=== PATIENT | male | born 1955 | race Caucasian/White ===

== ENCOUNTER 2016-11-14 23:06 | Inpatient (IN) | payer OTHER ==
[~2016-11-14] VITALS: Ht 185.4 cm; Wt 90.4 kg
[2016-11-15 00:45] VITALS: BP 116/58; PULSE 68; RESP 18; TEMP 98.1; O2SAT 100
[2016-11-15] MEDS ORDERED: ACETAMINOPHEN 325 MG TAB PO PRN ×2 (02:15→12:00)
[2016-11-15] MEDS ORDERED: MAGNESIUM HYDROXIDE SUSP 30 ML CUP PO PRN ×2 (02:15→12:00)
[2016-11-15] MEDS ORDERED: ALUMINUM/MAGNESIUM/SIMETH 30 ML CUP PO PRN ×2 (02:15→12:00)
[2016-11-15] MEDS ORDERED: hydrOXYzine HCL 50 MG TAB PO PRN (02:15)
[2016-11-15 05:33] VITALS: BP 112/60; PULSE 82; RESP 18; TEMP 98.1; O2SAT 98
--- NOTE | 2016-11-15 12:35 | HHI.HP ---
Provisional Diagnosis Admission Date Nov 15, 2016 at 00:45 [place] I. Amphetamine abuse F 15.10, psychoactive substance induced mood disorder F 19.92 , malingering Z 76.5 Certification of Person's Competence To Provide Express and Informed Consent I have personally examined César Ellsworth , a person being served at [facility] on, Nov 15, 2016 12:02. Express and informed consent means consent voluntarily given in writing, by a competent person, after sufficient explanation and disclosure of the subject matter involved to enable the person to make a knowing and willful decision without any element of force, fraud, deceit, duress, or other form of constraint or coercion. This person is 18 years of age or older, is not now known to be incompetent to consent to treatment with a guardian advocate, and does not have a health care surrogate or proxy currently making medical treatment decisions. I have found this person to be one of the following: [x] Competent to provide express and informed consent, as defined above, for voluntary admission to this facility and is competent to provide express and informed consent for treatment. He/she has the consistent capacity to make well reasoned, willful, and knowing decisions concerning his or her medical or mental health treatment. The person fully and consistently understands the purpose of the admission for examination/placement and is fully capable of personally exercising all rights assured under [place] Incompetent to provide express and informed consent to voluntary admission, and this is incompetent to provide express and informed consent to treatment. The person must be transferred to involuntary status and a petition for a guardian advocate filed with the Circuit Court. [] Refusing to provide express and informed consent to voluntary admission but is competent to provide express and informed consent for treatment. The person must be discharged or transferred to involuntary status. Form shall be completed within 24 hours of a person's arrival at the receiving facility and filed in the clinical record of each person: 1. Admitted on a voluntary basis 2. Permitted to provide express and informed consent to his/her own treatment 3. Allowed to transfer from involuntary to voluntary status 4. Prior to permitting a person to consent to his or her own treatment after having been previously found incompetent to consent to treatment. History of Present Illness Capacity: Has Capacity HPI Patient is a 61-year-old white male is Zaid acted here from [facility] act signed by Dr. Stephanie Mathews dated 11/14/16 at 1:20 PM. Mar act review essentially stating the patient was depressed and homeless thoughts to hurt himself patient was requesting to be Mar acted and if he was was not Mar acted he would hurt himself. It appears he stated that many times there. Patient seen and screened blood alcohol level negative urine toxicology positive for amphetamines. It appears patient was homeless and somehow came from the [place] area initially with a car though it appears it broke down in the [facility], eventually wound up at the hospital. Patient was transferred to this facility under the Mar act. Patient seen in his room with medical student Nora. Patient somewhat disheveled. Initially calm but giving somewhat confusing convoluted story that was quite void of details and accuracy. Acknowledge being homeless for for 2 years. Then stated he has physicians in the community one that had prescribed him Wellbutrin. He stated having a supply of that in his car that is impounded somewhere around [place]. When asked about his amphetamine in his urine he says that he is prescribed by a family practice doctor in [place] for his attention problems. Review of our EMR shows this is his first visit with us. Patient make vague claims about prior psychiatric contact or hospitalizations though unable to give any details. He said he has no support group but he also gave a convoluted history of being born in [place] coming to various places in the [place] and that he has extended family in [place] and [place]. When asked what we could do to help him he said help make contact with " my girl friend in [place]." I rejected that stating that there are services in the community to help homeless contact people. once I mentioned that he may be looking for "3 hots and a cot " he became quite angry. When I mentioned that I would not give prescriptions for substances of abuse such as benzodiazepines opiates or psychostimulants he became more angry and said we should "just discharge me" "and I will show you" At this time and feel patient does not meet Mar act criteria. I feel this is significant degree of manipulation and malingering. Thus I'll lift the Mar act. Allow the patient to be discharged. There will be no Rx by me. We will refer him through to the homeless coalition, diane KaurJeyson Orantes act if he wishes further mental health follow-up. Also refer him to na Review of Systems Constitutional: DENIES: Diaphoretic episodes, Fatigue, Fever, Weight gain, Weight loss, Chills, Dizziness, Change in appetite, Night Sweats Endocrine: DENIES: Heat/cold intolerance, Polydipsia, Polyuria, Polyphagia Eyes: DENIES: Blurred vision, Diplopia, Eye inflammation, Eye pain, Vision loss , Photosensitivity, Double Vision Ears, nose, mouth, throat: DENIES: Tinnitus, Hearing loss, Vertigo, Nasal discharge, Oral lesions, Throat pain, Hoarseness, Ear Pain, Running Nose, Epistaxis, Sinus Pain, Toothache, Odynophagia Respiratory: DENIES: Apneas, Cough, Snoring, Wheezing, Hemoptysis, Sputum production, Shortness of breath Cardiovascular: DENIES: Chest pain, Palpitations, Syncope, Dyspnea on Exertion , PND, Lower Extremity Edema, Orthopnea, Claudication Gastrointestinal: DENIES: Abdominal pain, Black stools, Bloody stools, Constipation, Diarrhea, Nausea, Vomiting, Difficulty Swallowing, Anorexia Genitourinary: DENIES: Sexual dysfunction, Urinary frequency, Urinary incontinence, Urgency, Hematuria, Dysuria, Nocturia, Penile Discharge, Testicular Pain, Testicular Swelling Musculoskeletal: DENIES: Joint pain, Muscle aches, Stiffness, Joint Swelling, Back pain, Neck pain Integumentary: DENIES: Abnormal pigmentation, Nail changes, Pruritus, Rash Hematologic/lymphatic: DENIES: Bruising, Lymphadenopathy Immunologic/allergic: DENIES: Eczema, Urticaria Neurologic: DENIES: Abnormal gait, Headache, Localized weakness, Paresthesias, Seizures, Speech Problems, Tremor, Poor Balance Psychiatric: DENIES: Anxiety, Confusion, Mood changes, Depression, Hallucinations, Agitation, Suicidal Ideation, Homicidal Ideation, Delusions Past Psych History Psychological trauma history Denies Violence risk - others (6 mos) Patient labile and angry Violence risk - self (6 mos) Patient made statements concerning suicidality that I feel a manipulative of malingering Substance Abuse History Drugs/Alcohol past 12 months urine toxicology positive for amphetamines Past Family Social History Coded Allergies: No Known Allergies (Unverified , 11/15/16) Past Medical History Patient medically cleared [facility] Current Medications Medications (Trade) Dose Ordered Sig/Abner Route Start Time Stop Time Status Last Admin (Pneumovax-23 Inj) 25 mcg ONCE ONCE IM 11/16/16 10:00 11/16/16 10:01 (Flu (Quadrivalent) Vaccine Inj) 0.5 ml ONCE ONCE IM 11/16/16 10:00 11/16/16 10:01 (Atarax) 50 mg Q6H PRN PO 11/15/16 02:15 (Tylenol) 650 mg Q4H PRN PO 11/15/16 02:15 (Milk Of Magnesia Liq) 30 ml DAILY PRN PO 11/15/16 02:15 (Mag-Al Plus Susp Liq) 30 ml Q6H PRN PO 11/15/16 02:15 Family History unable to ascertain at this time Social History Patient homeless has abused amphetamines appears to be malingering Patient's Strengths (min. 2) Able access healthcare, is quite verbal Physical Exam Patient seen screened at [facility] medically cleared there vital signs blood pressure 112/60 pulse 82 respirations 18 Vital Signs Vital Signs Date Time Temp Pulse Resp B/P Pulse Ox O2 Delivery O2 Flow Rate FiO2 11/15/16 05:33 98.1 82 18 112/60 98 Lab Results Urine toxicology drawn at [facility] positive for amphetamines Mental Status Examination Alert oriented somewhat disheveled white male appears somewhat younger than stated age laying in a entitled irritable demanding manipulative attitude angry and labile Appearance Disheveled Speech: Unremarkable Orientation: x3 Memory: Unremarkable Thought Process: Logical, Circumstantial Thought Content: Unremarkable Hallucination Type: None Attention and Concentration: Other (fair) Suicidal Ideation: No (patient made vague suicidal statements though I feel they were manipulative and malingering) Previous Suicide Attempts: No Homicidal Ideation: No Previous Homicide Attempts: No Insight: Poor Judgement: Poor Affect: Oppositional, Other (slight increase range and intensity) Mood: Angry, Oppositional, Irritable Motor Activity: Normal gait (patient slight limp secondary to extensive walking ) Assessment & Plan Problem List: (1) Malingering ICD Code: Z76.5 (2) Amphetamine abuse ICD Code: F15.10 (3) Psychoactive substance-induced mood disorder ICD Code: F19.94 Assessment & Plan Estimated LOS: days at this time patient does not meet Mar criteria will lift Mar act I feel is a degree of malingering with this gentleman. Thus I will discharge patient to himself, no Rx by me, will refer him to the homeless coalition, referral Mr. Orantes act 50 wishes further mental health assessment. Also refer to narcotics anonymous Discharge Planning See above Request HC Surrog/Guard Advoc?: No Good Walden MD Nov 15, 2016 12:35
--- NOTE | 2016-11-15 12:42 | HHI.DS ---
Psychiatry Discharge Summary Inpatient Psychiatric care?: Yes Advance Directive: No Reason Not Provided: declined Mental Health AdvanceDirective: No Health Care Proxy: No Admission Admission Date Nov 15, 2016 at 00:45 Admission Diagnosis: (1) Malingering ICD Code: Z76.5 (2) Amphetamine abuse ICD Code: F15.10 (3) Psychoactive substance-induced mood disorder ICD Code: F19.94 Brief History Patient is a 61-year-old white male is Mar acted here from [facility] Mar act signed by Dr. Stephanie Mathews dated 11/14/16 at 1:20 PM. Mar act review essentially stating the patient was depressed and homeless thoughts to hurt himself patient was requesting to be Mar acted and if he was was not Mar acted he would hurt himself. It appears he stated that many times there. Patient seen and screened blood alcohol level negative urine toxicology positive for amphetamines. It appears patient was homeless and somehow came from the [place] area initially with a car though it appears it broke down in the [facility], eventually wound up at the hospital. Patient was transferred to this facility under the Mar act. Patient seen in his room with medical student Nora. Patient somewhat disheveled. Initially calm but giving somewhat confusing convoluted story that was quite void of details and accuracy. Acknowledge being homeless for for 2 years. Then stated he has physicians in the community one that had prescribed him Wellbutrin. He stated having a supply of that in his car that is impounded somewhere around [place]. When asked about his amphetamine in his urine he says that he is prescribed by a family practice doctor in [place] for his attention problems. Review of our EMR shows this is his first visit with us. Patient make vague claims about prior psychiatric contact or hospitalizations though unable to give any details. He said he has no support group but he also gave a convoluted history of being born in [place] coming to various places in the [place] and that he has extended family in [place] and [place]. When asked what we could do to help him he said help make contact with " my girl friend in [place]." I rejected that stating that there are services in the community to help homeless contact people. once I mentioned that he may be looking for "3 hots and a cot " he became quite angry. When I mentioned that I would not give prescriptions for substances of abuse such as benzodiazepines opiates or psychostimulants he became more angry and said we should "just discharge me" "and I will show you" At this time and feel patient does not meet Mar act criteria. I feel this is significant degree of manipulation and malingering. Thus I'll lift the Mar act. Allow the patient to be discharged. There will be no Rx by me. We will refer him through to the [facility], referral Stewart. Rolanda montague if he wishes further mental health follow-up. Also refer him to lisa Tobacco Use In Past 30 Days: No Tobacco Past 30 Days Alcohol Use: 2-3 Times Per Week Hospital Course Please see above note dictated under brief history. Patient does not meet Mar criteria will lift Mar act patient to be discharged to himself. No Rx by me. Referred to [facility]. Referred to Vincent montague for further outpatient mental health services, referred to Narcotics Anonymous Results Blood Pressure 112 / 60 Vital Signs Date Time Temp Pulse Resp B/P Pulse Ox O2 Delivery O2 Flow Rate FiO2 11/15/16 05:33 98.1 82 18 112/60 98 Urine toxicology drawn at [facility] positive for amphetamines Summary of Procedures None done Pending results at discharge: No Medications # of Antipsychotic meds at D/C: 0 Approp Antipsych med options 1 - Minimum of three failed multiple trials of monotherapy. 2 - Documented plan to taper to monotherapy due to previous use of multiple meds OR cross-taper in progress at D/C. 3 - Documentation of augmentation of Clozapine. 4 - Justification other than those listed in allowable values 1-3, document here : Discharge Discharge Date: Nov 15, 2016 Discharge Diagnosis: (1) Malingering Diagnosis: Principal ICD Code: Z76.5 (2) Amphetamine abuse Diagnosis: Principal ICD Code: F15.10 (3) Psychoactive substance-induced mood disorder Diagnosis: Principal ICD Code: F19.94 Mental Status Exam at Disch Alert oriented disheveled white male appears in his stated age, he is normal active, speech rate and rhythm somewhat increased, there is mild circumstantiality. Mood is euthymic to angry and irritable with increased range and intensity of its affect though no auditory or visual hallucinations no delusions noted insight and judgment is poor cognition grossly intact Pt Condition on Discharge: Stable Discharge Disposition: Discharge Home Discharge Instructions Diet Instructions: As Tolerated, No Restrictions Activities you can perform: Regular-No Restrictions Scheduled Appointment: Vincent Montague (refer Vincent Orantes act mental health follow-up per his desire, [facility], refer Narcotics Anonymous) Discharge Time > 30 minutes Discharge/Advance Care Plan Health Problems: (1) Malingering (2) Amphetamine abuse (3) Psychoactive substance-induced mood disorder Goals to promote your health * To prevent worsening of your condition and complications * To maintain your health at the optimal level Directions to meet your goals Take your medications as prescribed Follow your dietary instruction Follow activity as directed Keep your appointments as scheduled Take your immunizations and boosters as scheduled If your symptoms worsen call your PCP, if no PCP go to Urgent Care Center or Emergency Room For 27/03 questions related to your inpatient stay or results of tests pending at discharge, please contact Dr. Good Walden at Smoking is Dangerous to Your Health. Avoid second hand smoking Good Walden MD Nov 15, 2016 12:42
[2016-11-16] MEDS ORDERED: INFLUENZA VIRUS VACCINE (QUADRIVALENT) 0.5 ML SYR IM ONE (10:00)
[2016-11-16] MEDS ORDERED: PNEUMOCOCCAL POLYVALENT INJ 25 MCG/0.5 ML SYR IM ONE (10:00)
== END 2016-11-15 15:05 | disposition home or self-care (01) | DRG 897 ==
LOC: H260 11-15 00:45
PROVIDERS: ADMIT Psychiatry & Neurology Psychiatry; ATTEND Psychiatry & Neurology Psychiatry
DX: F15.14 Other stimulant abuse with stimulant-induced mood disorder (principal); Z59.0 Homelessness; Z76.5 Malingerer [conscious simulation]